=== PATIENT | female | born 1945 | race African-American/Black ===

== ENCOUNTER 2018-04-05 10:59 | Outpatient (CLI) | payer MEDICARE ==
--- NOTE | 2018-04-05 11:41 | RAD ---
LEFT HIP TWO VIEWS: HISTORY: Left hip pain. COMPARISON: None. FINDINGS: Two views of the left hip show no evidence of acute fracture or dislocation. No soft tissue swelling is seen. No degenerative changes are present. The calcifications in the pelvis may represent a norbert cified uterine fibroid. IMPRESSION: No significant left hip abnormality. POS: [facility]
== END 2018-04-05 11:00 | disposition home or self-care (01) ==
LOC: BURRAD 10:59
PROVIDERS: ATTEND Physician Assistant
DX: M25.552 Pain in left hip (principal)

== ENCOUNTER 2018-05-18 10:22 | Outpatient (CLI) | payer MEDICARE ==
--- NOTE | 2018-05-18 16:48 | RAD ---
CHEST 2 VIEWS: Date: 05/18/18 No prior films available for comparison. The heart is normal in size. There is no vascular congestion, edema, or pleural effusion. The lungs a re clear. The mediastinum shows no acute changes. Degenerative changes are prominent in the thoracic spine. IMPRESSION: No acute thoracic findings. POS: [facility]
== END 2018-05-18 10:23 | disposition home or self-care (01) ==
LOC: BURRAD 10:22
PROVIDERS: ATTEND Physician Assistant
DX: R76.11 Nonspecific reaction to tuberculin skin test without active tuberculosis (principal)
CPT/HCPCS: 71046

== ENCOUNTER 2021-01-22 11:57 | Outpatient (CLI) | payer MEDICARE | END 2021-01-22 11:58 | disposition home or self-care (01) | LOC: BURRAD 11:57 | PROVIDERS: ATTEND Physician Assistant | DX: M54.5 Low back pain (principal); M47.816 Spondylosis without myelopathy or radiculopathy, lumbar region | CPT/HCPCS: 72100 ==